=== PATIENT | male | born 1985 | race Caucasian/White ===

== ENCOUNTER 2023-11-28 11:54 | Emergency (ER) | payer OTHER, SELFPAY ==
[2023-11-28 12:06] VITALS: BP 135/63; PULSE 99; RESP 18; TEMP 38.2; O2SAT 97
--- NOTE | 2023-11-28 12:24 | ED.FEVER ---
HPI - Fever General Chief Complaint: Fever Stated Complaint: Fever Time Seen by Provider: 11/28/23 12:32 Source: patient and RN notes reviewed Mode of arrival: ambulatory Limitations: no limitations History of Present Illness HPI Narrative: 38-year-old male presents with concern for fever, body aches, headache, sinus pain and congestion that started yesterday. He has not taken anything for his symptoms. Reports exposure to people with similar symptoms MD elicited complaint: fever Related Data Allergies Allergy/AdvReac Type Severity Reaction Status Date / Time No Known Allergies Allergy Verified 11/28/23 12:04 Review of Systems Review of Systems: CONSTITUTIONAL: Reports malaise, chills, sweats, fever. EYES: Denies visual changes, redness, or discharge. ENT: Reports rhinorrhea, congestion CARDIOVASCULAR: Denies chest pain, palpitations, or edema. RESPIRATORY: Denies cough. Denies dyspnea. GASTROINTESTINAL: Denies abdominal pain, nausea, vomiting, diarrhea SKIN: Denies rash or itching. MUSCULOSKELETAL: Denies myalgia. NEUROLOGIC: Denies headache. All systems reviewed & are unremarkable except as noted in HPI and below PMFSH Comments At time of signature, agree with nursing past medical, surgical, social and family history. There is no relevant family history pertinent to the presenting complaint Exam Narrative: GENERAL: Nontoxic-appearing, well-nourished, and in no acute distress. HEAD: Normocephalic EYES: PERRLA, conjunctivae clear ENT: Nares clear. Mucous membranes moist. TM pearly casillas with dull light reflex bilaterally; no tragal tenderness. Oropharynx not erythematous without lesions. Tonsils not enlarged and without exudate, no drooling, no hoarseness, no trismus, uvula midline. NECK: Supple. No lymphadenopathy CHEST: Clear to auscultation, breath sounds equal. No wheezing, rhonchi, rales, or stridor. No respiratory distress, speaks in full sentences. HEART: Regular rate and rhythm. No murmur heard. SKIN: Warm, dry, no rash. NEURO: Alert and oriented x3. PSYCH: Normal mood and affect Course Course Emergency Course: Patient is aware of diagnosis, understands and agrees to treatment plan. Anticipatory guidance given. Patient agrees to follow-up as directed and is aware of reasons to seek care at the emergency department. Portions of this record may have been created with voice recognition software Level of Care: Express Care Visit Vital Signs Vital signs: Vital Signs Temperature 100.8 F H 11/28/23 12:06 Pulse Rate 99 11/28/23 12:06 Respiratory Rate 18 11/28/23 12:06 Blood Pressure 135/63 11/28/23 12:06 Pulse Oximetry 97 11/28/23 12:06 Oxygen Delivery Room Air 11/28/23 12:06 Temperature 100.8 F H 11/28/23 12:06 Pulse Rate 99 11/28/23 12:06 Respiratory Rate 18 11/28/23 12:06 Blood Pressure 135/63 11/28/23 12:06 Pulse Oximetry 97 11/28/23 12:06 Oxygen Delivery Room Air 11/28/23 12:06 Reviewed. MDM - Fever Lab Data Attestation: I reviewed the patient's lab results. Critical Care Time Critical Care Time Critical Care Time: No Discharge Plan Discharge Clinical Impression: COVID Patient Disposition: Home, Self-Care Condition: Stable Instructions: How to Recover from COVID-19 at Home (ED) Additional Instructions: Your rapid COVID test is positive. COVID is a virus, antibiotics are not effective against viruses. Your body has to kill viruses. ? Stay home when you are sick, except to get medical care. ? Stay home to have a had a fever for 24 hours. If you have no symptoms or your symptoms are resolving after 5 days, you can leave your house. Continue to wear a mask around others for 5 additional days. ? If you are self isolating at home where others live, use a separate room and bathroom for sick household members (if possible). Clean any shared rooms as needed, to avoid transmitting the virus. ? Wash your hands often with soap a
== END 2023-11-28 12:44 | disposition home or self-care (01) ==
PROVIDERS: Emergency Provider Nurse Practitioner; PCP Family Medicine
DX: U07.1 COVID-19 (principal)
CPT/HCPCS: 87426; 87804; 99213; G0463